=== PATIENT | female | born 1940 | race Two or more races ===

== ENCOUNTER 2021-06-08 06:59 | Day surgery (SDC) | payer MEDICAID ==
[~2021-06-08] VITALS: Ht 157.5 cm; Wt 68.0 kg
[~2021-06-08 06:59] MED LIST: CYCLOPENTOLATE HCL 1% OPHTH DROPS 2ML LEFTEYE SCH; PHENYLEPHRINE HCL 10% OPHTH DROPS 5ML LEFTEYE SCH; TROPICAMIDE 1% OPHTH DROPS 15ML LEFTEYE SCH
[2021-06-08] MEDS ORDERED: BALANCED SALT IRRIG SOLN COMB1 500ML OP ONE (07:15)
[2021-06-08] MEDS ORDERED: LACTATED RINGERS 1,000 ML IV SCH (07:30)
[2021-06-08 07:32] LABS: HEMATOCRIT. 36.9 % (36.0-48.0); HEMOGLOBIN. 12.4 g/dL (12.0-16.0); MEAN CORPUSCULAR HEMOGLOBIN 31.2 pg (28.0-32.0); MEAN CORPUSCULAR VOLUME 93.2 fL (81.0-99.0); MEAN PLATELET VOLUME 8.7 fl (7.4-10.4); PLATELET 202 x1000/uL (130-400); RED BLOOD CELL COUNT 3.95 mill/uL (4.2-5.4); RED CELL DISTRIBUTION WIDTH 13.2 % (11.6-14.6)
[2021-06-08 08:08] LABS: CHLORIDE 109 mEq/L (98-107)
[2021-06-08] MEDS ORDERED: TROPICAMIDE 1% OPHTH DROPS 15ML ONE (09:00)
[2021-06-08] MEDS ORDERED: BALANCED SALT IRRIG SOLN 15ML ONE (09:00)
[2021-06-08] MEDS ORDERED: PREDNISOLONE ACETATE 1% OPHTH DROPS 5ML ONE (09:00)
[2021-06-08] MEDS ORDERED: CIPROFLOXACIN 0.3% OPHTH SOLN 2.5ML ONE (09:00)
[2021-06-08] MEDS ORDERED: TETRACAINE 0.5% OPHTH DROPS 4ML ONE (09:00)
[2021-06-08] MEDS ORDERED: CYCLOPENTOLATE HCL 1% OPHTH DROPS 2ML ONE (09:00)
[2021-06-08] MEDS ORDERED: PHENYLEPHRINE HCL 10% OPHTH DROPS 5ML ONE (09:00)
[2021-06-08] MEDS ORDERED: NEO/POLYMYX B SULF/DEXAMETH OPHTH OINT 3.5GM ONE (09:00)
[2021-06-08] MEDS ORDERED: LIDOCAINE HCL/PF 2% 20 MG/ML 10ML VIAL ONE (09:00)
[2021-06-08 09:16] LABS: PLATELET ESTIMATE NORMAL
[2021-06-08] MEDS ORDERED: MIDAZOLAM HCL 2 MG/2 ML VIAL ONE (09:41)
[2021-06-08] MEDS ORDERED: DEXAMETHASONE 4MG/ML 1ML VIAL ONE (09:42)
[2021-06-08] MEDS ORDERED: ONDANSETRON HCL 4MG/2ML INJ ONE (09:42)
[2021-06-08] MEDS ORDERED: FENTANYL CITRATE/PF 50MCG/ML 2ML VIAL ONE (09:43)
[2021-06-08] MEDS ORDERED: FENTANYL CITRATE/PF 50MCG/ML 2ML VIAL IV PRN (10:00)
[2021-06-08] MEDS ORDERED: PROPOFOL 200MG/20ML VIAL IV ONE (10:01)
[2021-06-08] MEDS ORDERED: LIDOCAINE HCL 1% 10 MG/ML 10ML VIAL ONE (10:01)
[2021-06-08] MEDS ORDERED: HYALURONATE SODIUM 10 MG/ML 0.55ML SYRINGE IO ONE (10:09)
[2021-06-08] MEDS ORDERED: ASPI-1497 MT (10:20)
[2021-06-08] MEDS ORDERED: ALBU18HF2 IH (10:20)
[2021-06-08] MEDS ORDERED: PRAV40TA58 MT (10:20)
[2021-06-08] MEDS ORDERED: AMLO10TA80 MT (10:20)
[2021-06-08] MEDS ORDERED: LOSA50TA41 MT (10:20)
[2021-06-08] MEDS ORDERED: ALEN70TA79 MT (10:20)
[2021-06-08] MEDS ORDERED: XALAO EACHEYE (10:20)
[2021-06-08] MEDS ORDERED: ACET-2708 PO (10:20)
[2021-06-08] MEDS ORDERED: QUET25TA36 MT (10:20)
[2021-06-08] MEDS ORDERED: MEMA5TAB42 MT (10:20)
== END 2021-06-08 13:20 | disposition home or self-care (01) ==
LOC: OR 06:59
PROVIDERS: ATTEND Ophthalmology
DX: H25.22 Age-related cataract, morgagnian type, left eye (principal); I10 Essential (primary) hypertension; E78.00 Pure hypercholesterolemia, unspecified; M81.0 Age-related osteoporosis without current pathological fracture; Z20.822 Contact with and (suspected) exposure to COVID-19; Z98.41 Cataract extraction status, right eye; Z79.82 Long term (current) use of aspirin; Z79.899 Other long term (current) drug therapy; Z98.890 Other specified postprocedural states
CPT/HCPCS: 36415; 66984; 80048; 85025; 87426; J1100; J2250; J2405; J2704; J3010; J3490; V2632